=== PATIENT | female | born 1985 | race Caucasian/White ===

== ENCOUNTER 2025-01-24 18:37 | Emergency (ER) | payer BC, OTHER ==
[~2025-01-24] VITALS: Ht 157.5 cm; Wt 62.1 kg
[~2025-01-24 18:37] MED LIST: TRAZODONE HCL50 MG PO; VYVANSE70 MG PO
[2025-01-24] MEDS: LIDOCAINE HCL 1% LOCAL INJ 20 ML VIAL INJ STA (19:28)
[2025-01-24 19:36] VITALS: PULSE 70; RESP 18; TEMP 98.3
[2025-01-24] MEDS ORDERED: ULTRAM 50MG50 MG PO (19:41)
[2025-01-24] MEDS ORDERED: BACTRIM 400-801 EACH PO (19:41)
[2025-01-24 19:43] VITALS: BP 124/89; PULSE 77; RESP 18; O2SAT 99
== END 2025-01-24 19:50 | disposition home or self-care (01) ==
LOC: ER 18:47
DX: L02.213 Cutaneous abscess of chest wall (principal)
CPT/HCPCS: 99283